=== PATIENT | female | born 2005 | race Caucasian/White ===

== ENCOUNTER 2025-04-28 07:56 | Outpatient (CLI) | payer OTHER | END 2025-04-28 07:57 | disposition home or self-care (01) | LOC: SCSRAD 07:56 | PROVIDERS: ATTEND Student in an Organized Health Care Education/Training Program | DX: K59.09 Other constipation (principal) | CPT/HCPCS: 36415; 74018; 80053; 80061; 81001; 82306; 82607; 83036; 84439; 84443; 84480; 85025; 87086 ==